=== PATIENT | male | born 1940 | race Caucasian/White ===

== ENCOUNTER 2018-12-10 02:01 | Inpatient (IN) | payer OTHER ==
[~2018-12-10] VITALS: Ht 152.4 cm; Wt 102.1 kg
[2018-12-10] MEDS ORDERED: [UNRECOGNIZED DRUG - OTHER] PO (02:05)
[2018-12-10] MEDS ORDERED: [UNRECOGNIZED DRUG - OTHER] PO (02:06)
[2018-12-10] MEDS ORDERED: ASA81BEC PO (02:07)
[2018-12-10] MEDS ORDERED: [UNRECOGNIZED DRUG - OTHER] PO (02:07)
[2018-12-10] MEDS ORDERED: ALLEGRA ALLERG180 MG PO (02:07)
[2018-12-10] MEDS ORDERED: CALTRATE+D3 PL1 EACH PO (02:08)
[2018-12-10] MEDS ORDERED: AZELASTINE205.5 MCG/ NARES (02:08)
[2018-12-10] MEDS ORDERED: COLACE100 MG PO ×2 (02:09→02:10)
[2018-12-10] MEDS ORDERED: CYMBALTA60 MG PO (02:10)
[2018-12-10] MEDS ORDERED: FERGON270 MG PO (02:11)
[2018-12-10] MEDS ORDERED: FLONASE 0.05%50 MCG NARES (02:11)
[2018-12-10] MEDS ORDERED: GAS-X ULTRA ST180 MG PO (02:13)
[2018-12-10] MEDS ORDERED: AMARYL1 MG PO (02:13)
[2018-12-10] MEDS ORDERED: [UNRECOGNIZED DRUG - OTHER] PO (02:14)
[2018-12-10] MEDS ORDERED: JARDIANCE10 MG PO (02:14)
[2018-12-10] MEDS ORDERED: KETO PO (02:15)
[2018-12-10] MEDS ORDERED: MIRALAX119 GM PO (02:16)
[2018-12-10] MEDS ORDERED: COZAAR 25 MG TA25 M2 PO (02:16)
[2018-12-10] MEDS ORDERED: REMERON 30 MG T30 M1 PO (02:16)
[2018-12-10] MEDS ORDERED: [UNRECOGNIZED DRUG - OTHER] PO (02:17)
[2018-12-10] MEDS ORDERED: OMEGA SLIM PO (02:18)
[2018-12-10] MEDS ORDERED: PAZEO EA. EYE (02:20)
[2018-12-10] MEDS ORDERED: PROBIOTIC PO (02:21)
[2018-12-10] MEDS ORDERED: PLAVIX 75 MG TA75 MG PO (02:21)
[2018-12-10] MEDS ORDERED: PROVIGIL 200 M200 MG PO ×2 (02:22)
[2018-12-10] MEDS ORDERED: ZOCOR40 MG PO (02:23)
[2018-12-10] MEDS ORDERED: SIMPLY SALINE SPRAY (02:23)
[2018-12-10] MEDS ORDERED: MELATONIN3 M1 PO (02:24)
[2018-12-10] MEDS ORDERED: REFRESH OPTIVE EA. EYE (02:25)
[2018-12-10] MEDS ORDERED: ACETAMINOPHEN650 M5 PO (02:26)
[2018-12-10] MEDS ORDERED: UROXATRAL PO (02:27)
[2018-12-10] MEDS ORDERED: VITAMIN B12 PO (02:27)
[2018-12-10] MEDS ORDERED: VITAMIN C100 MG PO (02:27)
[2018-12-10] MEDS ORDERED: VITAMIN D3 PO (02:28)
[2018-12-10 02:57] VITALS: BP 149/81
--- NOTE | 2018-12-10 03:10 | NUR ---
PT ADMITTED PER AMBULANCE FROM [facility]'S ED. PT DEPRESSED AND SUICIDAL. EXPRESSED DESIRE TO "CUT MY WRISTS". CLAIMS TO HAVE THESE THOUGHTS FROM TOIME TO TIME. PREVIOUSLY HOSPITALIZED AT [facility] IN 2010 WITH DRUG OVERDOSE. CURRENTLY IN OP TREATMENT FOR HIS DEPRESSION. UPON ARRIVAL TO THE UNIT, PT COOL CALM AND COOPERATIVE. ADMITS TO BECOMING EASILY FRUSTRATED AND QUICK TO ANGER. WORRIED THAT DUE TO RECENT MEMORY PROBLEMS, THAT HE MAY BE IN EARLY STAGES OF DEMENTIA, OR ALZHEIMERS. 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 ORIENTED AND LUCID. RESTING COMFORTABLY, AND HAS SIGNED IN VOLUNTARILY.
[2018-12-10 11:08] VITALS: BP 149/81
--- NOTE | 2018-12-10 17:38 | NUR ---
SW met pt during afternoon group. Group was about what pts are grateful for; pt responded he is very grateful for his . He also talked about being a bottom liner to his children. SW contacted pt's So to introduce self and complete an initial assessment. No answer. NIRAV left message. SW team will continue to follow pt during his stay.
--- NOTE | 2018-12-10 23:50 | NUR ---
ASSUMED CARE @ 19:15 ON 12/10/18. IN ROOM IN BED DRESSED IN STREET CLOTHES. COOPERATED WITH ASSESSMENT. HRRR, LUNGS CTA, ABD BS N X 4 Q. REPORTS HAVING A BM TODAY. DENIES SI, HI AND A/V HALLUCINATIONS. REPRTS ANGER ISSUES. REPORTS ALSO FORGETTING NAMES, AND HAVING CONCERN THAT THIS MEANS HE HAS ALZHEIMERS. REPORTS THAT HIS 'S VISIT TODAY UPSET HIM, D/T HER ARRIVING 5 MINUTES BEFORE THE END OF VISITING TIME, AND NOT UNDERSTANDING THAT SHE COULD NOT STAY PAST VISITING TIME. TOOK MEDICATIONS WHOLE WITH WATER. RETIRED TO BED WEARING HOSPITAL GOWN AND PANTS. WILL CONTINUE TO MONITOR Q 12 MINUTES FOR PATIENT SAFETY.
[2018-12-11] VITALS: BP 145/86
[2018-12-11 00:09] VITALS: BP 145/86
--- NOTE | 2018-12-11 06:42 | NUR ---
SLEPT 11.4 HOURS OVERNIGHT. HOME MEDS STORED IN PHARMACY. AMBULATES WITH A CANE. BELONGINGS THAT HIS BROUGHT ARE INVENTORIED AND SENT TO [facility].
[2018-12-11 12:52] VITALS: BP 145/86
--- NOTE | 2018-12-11 12:55 | NUR ---
It was reported to NIRAV during treatment team that the psych doctor is okay with pt d/c on 12/12/2018. NIRAV completed intial assessment and tx plan with pt. She asked pt if he still had SI, and his response was no. He said he needs to accept his 's medical condition and other stressors. He said he is no longer a harm to self. He verbalized he is comfortable with discharging tomorrow and that his will be his transportation. NIRAV contacted Dr. Barraza's office and made an appt for pt on 12/18/2018 @1015. NIRAV contacted pt's So who said she can transport pt at 1300 on 12/12/18. She also said she will transport pt to his doctor appt next week. She is hoping that pt's stay has helped. SW team will continue to follow pt during his stay.
[2018-12-11 13:18] VITALS: BP 145/74
--- NOTE | 2018-12-11 14:33 | NUR ---
PATIENT PLEASANT AND AGREEABLE. STATED HAS WENDY FRUSTRATED AT HOME WITH . MEDICAL ISSUES HAVE CAUSED HIM TO HAVE TO DO EVERYTHING. PATIENT ALERT AND ORIENTED X 4 - MAKES NEEDS KNOWN. STATED HAD ONE INCIDENT IN 2011 WHERE HE OVERDOSED - STATES REALTED WELL. FEELS HAD TO DO EVERYTHING AT HOME AND UNABLE TO COPE - PATIENT HAS NO PAIN DISCOMFORT CURRENTLY. SUFFERS FROM PAIN AT TIMES IN KNEES BILATERALLY - STATES TYLENOL EFFECTIVE. PATIENT BECOMES IRRITATED AND FRUSTRATED WHEN DISCUSSING HIS HOME SITUATION. DENIES ANY S/I CURRENTLY. RATED DEPRESSION AND ANXIETY AT 5 DUE TO HOME SITUATION. SUFFERS FROM CONSTIPATION AND REQUESTED MORE ROUGHAGE WITH HIS MEALS. PATIENT AMBULATORY AND SELF CARE. SOCIAL AND ENGAGING WITH PEERS AND PARTICIPATES IN GROUPS. COMPLIANT WITH MEDIDICATIONS. HAS BEEN UP AND CONGENIAL.
[2018-12-11 20:11] VITALS: BP 153/80
--- NOTE | 2018-12-11 20:24 | H ---
[facility] [place] [address] HISTORY AND PHYSICAL Name: CONNIE ARRIETA Room #: 521B-B ADM IN M.R.#: [id number] Admission: 12/10/18 Attend Phys: Abraham Cherry DO Discharge: Date of : 42 Report #: [id number] THIS REPORT FOR: //name// CC: Abraham Hansen Brett DATE OF SERVICE: 12/10/2018 INPATIENT PSYCHIATRIC EVALUATION ATTENDING PHYSICIAN: Abraham Cherry DO ACID WASHER OPERATOR: Raymond Miranda MD REASON FOR ADMISSION: Suicidal ideation with plan to cut wrist. SOURCES OF INFORMATION: Interview with the patient, chart review, records from [facility]. HISTORY OF PRESENT ILLNESS: This is a 78-year-old male. The patient's psychiatrist reportedly is Dr. Michael Akers whose [facility] assessment noted, he presented to ED endorsing suicidal ideation. The patient reports that he has a plan to slice his wrist. The patient reports increasing anger and depression over the last few weeks and that today reached the point that he wanted to end his life. The patient reports there have been increased needs in the home and that he and his are struggling to keep up with. This is resulting in increasing anger and irritation with his and with people in the community. Per patient "I will just start cussing people out while driving up, I think that they were driving bad and I will yell and cuss at Mariah, my all the time." The patient's voices concern the patient may not be able to be safe with her in the home at this time. The patient attempt to get an emergency appointment with his psychiatrist, Dr. Akers was unsuccessful and was taken to the ED for evaluation and treatment. The patient reports an attempted overdose to end his life in August 2010, resulting 5-day stay in the Psychiatric Unit at [facility]. The patient currently takes mirtazapine for increased depression and reports that "this helps some, but at least it does not make me feel bad like my last medication did." The patient also reports his recent appointments or concerns of dementia and Alzheimer's like symptoms. The patient reports he has had increase in his forgetfulness and this all contribute to his anger and irritation. The patient denies having any formal diagnosis of dementia, Alzheimer disease, but reports family history of dementia through his mom. With me today, he did report in April 2018, he had a neuropsych battery at [facility], which showed a diagnosis of dementia. I have requested these records. He denies having family support in the area. The patient reports he has a sister who lives in [place] in the good weather [facility] in [place] rest of the year. He has not seen her in quite some time. [address] [address] HISTORY AND PHYSICAL Name: CONNIE ARRIETA Room #: 521B-B ADM IN M.R.#: [id number] Admission: 12/10/18 Attend Phys: Abraham Cherry DO Discharge: Date of : 42 Report #: [id number] He is voluntary. He is . He is retired. Additionally, to me reports he is type A personality, forgets things easily, lives in [place]. His is a hoarder and she has inclusion body myositis. His primary care physician is Dr. Alexis West. He reported another stressor was his 's sync not working. PSYCHIATRIC HISTORY: As described, 08/18/2010 to 08/23/2010 [facility] for suicide attempt. He is on mirtazapine and Cymbalta. The Cymbalta may be for chronic pain. He reports he has ankle pain. LEGAL HISTORY: Denied. 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 Prostate cancer diagnosis, he reportedly was treated with radiation and he has sleep apnea, uses CPAP; had a stroke in February 2010. This is strange, it notes in 1973 he had a UTI. He was hospitalized at [facility]. PAST SURGICAL HISTORY: Cardiac catheterization, cataract extraction, circumcision August 2018, colonoscopy April 2015; CT-guided bone marrow, 12/01/2016; hernia repair in the past, laminectomy, nasal septum surgery, several sigmoidoscopies. FAMILY HISTORY: Diabetes mellitus in his mother, Alzheimer disease in his mother, ovarian cancer in his mother. Septicemia in his father, hypertension in father, hyperlipidemia in father, Alzheimer's disease. FAMILY HISTORY: Diabetes mellitus in maternal grandmother. SOCIAL HISTORY: Former smoker, smoked 3 years packs, last attempted to quit in February 1964. Alcohol use less than one drink per month. Illicit drug use denies. REVIEW OF SYSTEMS: From the ER, CONSTITUTIONAL: Negative for chills and fever. HENT: Negative for ear pain, sore throat. EYES: Negative for discharge. RESPIRATORY: Negative for cough, chest tightness and shortness of breath. [facility] [address] [place] [address] HISTORY AND PHYSICAL Name: CONNIE ARRIETA Room #: 521B-B ADM IN M.R.#: [id number] Admission: 12/10/18 Attend Phys: Abraham Cherry DO Discharge: Date of : 42 Report #: [id number] CARDIOVASCULAR: Negative for chest pain. GASTROINTESTINAL: Negative for abdominal pain, diarrhea, nausea or vomiting. GENITOURINARY: Negative for dysuria and frequency. MUSCULOSKELETAL: Negative for back pain. SKIN: Negative for rash. NEUROLOGICAL: Negative for dizziness, numbness and headaches. PSYCHIATRIC: Behavioral positive for suicidal ideas. Negative for confusion. LABORATORY DATA: EKG result, QTc of 407. CBC: White count 4.45, H and H 14.6 and 44, platelet count 146. CMP showed sodium 139, potassium 4.4, chloride 102, bicarbonate 28, calcium 9.7, glucose 88, total serum protein 8.3, albumin 4.6, alkaline phosphatase 99, ALT 27, AST 32, total bilirubin 0.6, BUN 25, creatinine 1.1. Alcohol less than 10. Acetaminophen negative. Salicylate negative. Urinalysis was negative. UDS was not detected. PHYSICAL EXAMINATION: VITAL SIGNS: Today temperature 37.1, pulse 87, respirations 18, BP 149/81, O2 sat 99%. MUSCULOSKELETAL: Kyphotic, but grossly normal gait. He was in scrubs. His clothing evidently had not been brought up. MENTAL STATUS EXAMINATION: This is a well-developed, slightly disheveled male, wearing glasses with slight laceration in his medial forehead. Attention intact. Concentration intact. Speech is normal in rate, volume and tone. Thought process is linear and goal directed. Thought content focused on ameliorating situation. Of note, I performed a [facility] Mental Status Examination, he had scored 20/30. Deficits were on cued memory, delayed memory, reverse digit span and clock drawing. Mood and affect congruent, but constricted. Memory impaired as described. Insight limited. Judgment limited. Fund of knowledge above average. FORMULATION: This is a 78-year-old male admitted for suicidal ideation with plan. DIAGNOSES: Major depressive disorder, single episode, severe degree. 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 Several comorbidities including the most active ones being hyperlipidemia, hypertension, anemia, chronic pain. PLAN: Evaluate, stabilize and obtain collateral. For his anger outbursts, we will start him on oxcarbazepine 150 mg p.o. b.i.d. I have already increased his mirtazapine to 45 mg, otherwise his scheduled meds in the hospital include duloxetine 60 mg twice a day, glimepiride 1 mg with breakfast, aspirin 81 mg p.o. daily, Plavix 75 mg p.o. daily, docusate 200 mg b.i.d., ferrous sulfate 325 mg p.o. daily, Flonase, loratadine 10 mg p.o. daily, modafinil was discontinued until his family brings it in, oxcarbazepine 150 mg twice per day, calcium with vitamin D 1 tab p.o. with dinner. Atorvastatin 20 mg p.o. at bedtime, Losartan [facility] [address] [place] [address] HISTORY AND PHYSICAL Name: CONNIE ARRIETA Room #: 521B-B ADM IN M.R.#: [id number] Admission: 12/10/18 Attend Phys: Abraham Cherry DO Discharge: Date of : 42 Report #: [id number] 50 mg p.o. at bedtime, mirtazapine 45 mg p.o. at bedtime. We will see how he does with the Trileptal added. He states that the modafinil was prescribed for persistent somnolence, not ADHD kind of concerns. STRENGTHS: Insured, some family support. WEAKNESSES: Advancing age, multiple medical problems. Time spent on interview, review of records, coordination of care of this patient is approximately 60 minutes. <ELECTRONICALLY SIGNED> By: Abraham Cherry DO 12/11/184 1249 1416 Abraham Cherry DO /nt
--- NOTE | 2018-12-12 06:39 | NUR ---
1909-Report received from day shift nurse and care assumed, last evening. He requested prn Miralax at and was given that medicine. He was noted confused with taking his Miralax with a cup of just water nearby as well, confused about which to hold first, setting one down and then not dedicing how to take his pills. Indecisive. impaired decision making about the task. He talked about leaving to go home. He was educated that he had Melatonin prn for insomnia if needed and at 35 walked to the desk to ask for that medicine, Melatonin 10 mg. He sat on the side of the bed at times sleepying sitting up and also laid in his bed on top of the covers dressed in day clothes, even though asked if needed help. He slept total tonite 8.2 hours, Melatonin was effective, and he is still asleep at this time. Denied being depressed, bright affect, wanted to help other peers and staff. Smiled broadly when the SARAH Star was given to him to read in the day area.
[2018-12-12 09:25] VITALS: BP 143/75
[2018-12-12 10:04] VITALS: BP 143/75
[2018-12-12] MEDS ORDERED: OXCARBAZEPINE300 MG PO (11:33)
[2018-12-12] MEDS ORDERED: REMERON15 MG PO (11:36)
[2018-12-12] MEDS ORDERED: COLACE 100 MG100 MG PO (11:38)
--- NOTE | 2018-12-12 11:45 | NUR ---
PATIENT HAS BEEN UP AND OUT ON THE UNIT, AMBUOATES WITH SLOW STEADY GAIT. PATIENT TOOK ALL MORNING MEDICATION WHOLE WITHOUT DIFFICULTY. APPETITE IS GOOD, PATIENT EATING MEALS AND DRINKING FLUID WELL. PATIENT DENIES SUICIDAL/HOMICIDAL IDEATION. HE RATED BOTH DEPRESSIION, AND ANXIETY 2/10. PATIENT DENIES AUDITORY/VISUAL HALLUCINATION, HE DENIES HAVING PHYSICAL PAIN. GOAL IS TO BE DISCHARGED, NO CONCERN VOICED. NO SIGN OF ACUTE DISTRESS NOTED AT THIS TIME, WILL MONITOR FOR SAFETY.
[2018-12-12 12:54] VITALS: BP 145/86
--- NOTE | 2018-12-15 11:01 | D ---
[facility] [place] [address] [place] [address] DISCHARGE SUMMARY Name: CONNIE ARRIETA Room #: 521B-B [facility] IN M.R.#: [id number] Admission: 12/10/18 Attend Phys: Abraham Cherry DO Discharge: 12/12/18 Date of : 42 Report #: [id number] THIS REPORT FOR: //name// CC: Abraham Hansen [place] DATE OF SERVICE: 12/12/2018 INPATIENT PSYCHIATRIC DISCHARGE SUMMARY ATTENDING PHYSICIAN: Abraham Cherry DO. JACKSCREW WORKER: Christian Garay MD DISCHARGE DIAGNOSES: Major depressive disorder, unspecified anxiety, mild neurocognitive disorder. DISCHARGE DIET: Diabetic 1800 calorie, believe that he is a diet-controlled diabetic. ACTIVITY LEVEL: As tolerated. Recommend daylight driving, community roads, local, once he has formal driving evaluation. DISCHARGE MEDICATIONS: As follows: Trileptal 150 mg p.o. b.i.d., Rx given for 30 days for impulse control, anger management; mirtazapine 45 mg p.o. at bedtime for depression; docusate 200 mg p.o. b.i.d. for bowel motility; continue Sonya 180 mg p.o. daily for allergic rhinitis; aspirin 81 mg p.o. daily for cardioprotection. He uses azelastine 2 sprays nares b.i.d. daily but he is using that p.r.n. He takes calcium carbonate, D3, magnesium oxide, copper, magnesium, zinc, Caltrate plus D3 plus minerals, vitamin 1 each p.o. daily. He takes duloxetine 60 mg p.o. b.i.d. for depression, pain management. He takes ferrous gluconate 27 mg p.o. daily for supplementation. He uses simethicone p.r.n., takes glimepiride 1 mg p.o. daily for hyperglycemia. He takes Jardiance for hyperglycemia 10 mg p.o. daily, losartan 50 mg p.o. at bedtime for hypertension, polyethylene glycol 17 g p.o. daily p.r.n. constipation. He takes Plavix 75 mg p.o. daily for cardioprotection. I did not give him on this admission modafinil, which is Provigil 200 mg q. 12 for persistent hypersomnolence; however, he tells me he wishes to resume this when he goes home, so that medication will be between him and his outpatient psychiatrist, Dr. Akers. Simvastatin 40 mg p.o. every evening for hyperlipidemia; melatonin 10 mg ER at bedtime for sleep, I reduced it as a p.r.n.; and Tylenol 650 mg p.o. b.i.d. LABORATORY DATA: This admission are as follows: He was transferred from an outside hospital, so we only did Accu-Cheks here. [address] [address] DISCHARGE SUMMARY Name: CONNIE ARRIETA Room #: 521B-B [facility] IN Shanda#: [id number] Admission: 12/10/18 Attend Phys: Abraham Cherry, Discharge: 12/12/18 Date of : 42 Report #: [id number] REASON FOR ADMISSION: As follows: The patient was sent over from [facility] due to suicidal ideation with plan to cut his wrist. HOSPITAL COURSE: The patient was admitted to Geriatric Psychiatry Unit. The patient was admitted. Much of his suicidal ideation was reactionary due to being unable to reach his psychiatrist and get a sooner appointment, access crisis services. The patient has quite a few chronic medical problems and had had neuropsych testing this past April, which reached no specific conclusion regarding diagnosis; however, that is not the case with the present as Dr. Bud Brown consulted and found a number of deficits with clear criteria for mild neurocognitive disorder, and if it was not for the patient's proficiency with his ADLs and IADL's, he would be in dementia territories, so the patient will need close followup for cognitive decline. On the unit, the patient participated with social, perhaps at times a little too friendly with the patient almost acting like a clergy. That being said, his came on the day of discharge, we answered questions. He has a lot of stressors with her including her allegedly being a hoarder and her caregiver spoke with Dr. Michael Akers regarding admission, he was in favor of getting the patient back to the community and given instruction to go with outpatient stabilization. The patient was not suicidal or homicidal on the day of discharge and in fair condition. PHYSICAL EXAMINATION: VITAL SIGNS: On the day of discharge, temperature is 36.9, pulse rate 103, respirations 20, BP 145/86. He was afebrile. GENERAL: A well-developed, well-nourished. NEUROLOGIC: Normal gait and station. MENTAL STATUS EXAMINATION: Attention intact. Concentration intact. Speech is normal in rate, volume and tone. Thought process is linear and goal directed. Thought content focused on discharge. Mood and affect, mood euthymic, fair range. Memory had been formally tested before and neuropsych testing and he scored 20/30. Denied SI or HI. Denied hopelessness or helplessness. Memory not formally tested on the day of discharge. Insight is fair. Judgment is fair. Fund of knowledge average. PROGNOSIS: Fair to guarded and will depend on whether he converts from a mild cognitive impairment picture to dementia picture. The patient was provided hotline for [place] [employer] for suicide prevention, national hotline, which will give him an additional resource if he is feeling suicidal. Also, I questioned with his [facility] [address] [place] [address] DISCHARGE SUMMARY Name: MEENAKSHICONNIE Temitope Room #: 521B-B DIS IN M.R.#: [id number] Admission: 12/10/18 Attend Phys: Abraham Cherry DO Discharge: 12/12/18 Date of : 42 Report #: [id number] whether there were firearms or pill stockpiles and her and she denied it. <ELECTRONICALLY SIGNED> By: Abraham Cherry DO 12/15/18 [id number] Abraham Cherry DO /nt
== END 2018-12-12 13:50 | disposition home or self-care (01) | DRG 884 ==
LOC: SBH 02:01
PROVIDERS: ADMIT Psychiatry & Neurology Psychiatry
DX: F01.51 Vascular dementia, unspecified severity, with behavioral disturbance (principal); F32.2 Major depressive disorder, single episode, severe without psychotic features; R45.851 Suicidal ideations; F41.9 Anxiety disorder, unspecified; D64.9 Anemia, unspecified; E11.42 Type 2 diabetes mellitus with diabetic polyneuropathy; G47.33 Obstructive sleep apnea (adult) (pediatric); I10 Essential (primary) hypertension; G89.4 Chronic pain syndrome; K21.9 Gastro-esophageal reflux disease without esophagitis; E78.5 Hyperlipidemia, unspecified; K58.1 Irritable bowel syndrome with constipation; M19.90 Unspecified osteoarthritis, unspecified site; R45.850 Homicidal ideations; M50.30 Other cervical disc degeneration, unspecified cervical region; Z79.899 Other long term (current) drug therapy; Z79.02 Long term (current) use of antithrombotics/antiplatelets; Z98.41 Cataract extraction status, right eye; Z98.42 Cataract extraction status, left eye; Z86.73 Personal history of transient ischemic attack (TIA), and cerebral infarction without residual deficits; Z92.3 Personal history of irradiation; Z83.3 Family history of diabetes mellitus; Z82.0 Family history of epilepsy and other diseases of the nervous system; Z82.49 Family history of ischemic heart disease and other diseases of the circulatory system; Z83.49 Family history of other endocrine, nutritional and metabolic diseases; Z87.891 Personal history of nicotine dependence; Z91.013 Allergy to seafood; Z85.46 Personal history of malignant neoplasm of prostate; Z87.440 Personal history of urinary (tract) infections; Z79.891 Long term (current) use of opiate analgesic
CPT/HCPCS: 10880